=== PATIENT | female | born 1960 | race Two or more races ===

== ENCOUNTER 2020-06-05 10:51 | Inpatient (IN) | payer MEDICAID, OTHER ==
[~2020-06-05] VITALS: Ht 180.3 cm; Wt 85.4 kg
[2020-06-05] MEDS ORDERED: ACETAMINOPHEN 325MG TABLET PO STA (11:42)
[2020-06-05] MEDS ORDERED: CEFTRIAXONE 1 G PREMIX 50 ML IV ONE (11:45)
[2020-06-05] MEDS ORDERED: SODIUM CHLORIDE 0.9% 1000ML BAG (SEPSIS BOLUS) IV ONE (11:45)
[2020-06-05 12:12] LABS: BASOPHILS % 0.6 % (0.0-2.0); EOSINOPHILS % 0.2 % (0.0-5.0); HEMATOCRIT. 31.2 % (36.0-48.0); HEMOGLOBIN. 10.3 g/dL (12.0-16.0); LYMPHOCYTES % 12.3 % (20.0-50.0); MEAN CORPUSCULAR HEMOGLOBIN 37.8 pg (28.0-32.0); MEAN CORPUSCULAR VOLUME 114.3 fL (81.0-99.0); MEAN PLATELET VOLUME 8.8 fl (7.4-10.4); NEUTROPHILS % 76.9 % (40.0-76.0); RED BLOOD CELL COUNT 2.73 mill/uL (4.2-5.4); RED CELL DISTRIBUTION WIDTH 18.6 % (11.6-14.6)
[2020-06-05 12:17] LABS: CHLORIDE 102 mEq/L (98-107)
[2020-06-05 12:21] LABS: ETHANOL BLOOD < 10 mg/dL; INR 1.9; PROTHROMBIN TIME 19.8 sec (9.6-11.0)
[2020-06-05 12:31] LABS: PLATELET 42 x1000/uL (130-400)
[2020-06-05 12:56] LABS: PLATELET ESTIMATE MARKEDLY DECREASED
[2020-06-05] MEDS ORDERED: PHYTONADIONE 10MG/ML AMP IM ONE (14:45)
[2020-06-05 15:07] LABS: CLARITY URINE CLOUDY (CLEAR); COLOR URINE ORANGE (YELLOW); KETONES URINE NEGATIVE (NEGATIVE); LEUKOCYTE ESTERASE URINE 2+ (NEGATIVE); NITRITE URINE POSITIVE (NEGATIVE); OCCULT BLOOD URINE 3+ (NEGATIVE); PROTEIN URINE 1+ (NEGATIVE); SPECIFIC GRAVITY URINE 1.024 (1.005-1.030)
[2020-06-05 15:31] LABS: *AMPHETAMINES SCREEN URINE NEGATIVE (NEGATIVE); *BARBITURATES SCREEN URINE NEGATIVE (NEGATIVE); *BENZODIAZEPINES SCREEN URINE NEGATIVE (NEGATIVE); *COCAINE SCREEN URINE NEGATIVE (NEGATIVE); METHADONE URINE SCREEN NEGATIVE (NEGATIVE)
[2020-06-05 15:33] LABS: CANNABINOID URINE SCREEN NEGATIVE (NEGATIVE); OPIATES URINE SCREEN NEGATIVE (NEGATIVE); PHENCYCLIDINE URINE SCREEN NEGATIVE (NEGATIVE)
[2020-06-05] MEDS ORDERED: PHYTONADIONE 10MG/ML AMP IM NR (15:45)
[2020-06-05] MEDS ORDERED: LEVOFLOXACIN 500MG PREMIX 100 ML IV ONE (16:00)
[2020-06-05] MEDS ORDERED: SODIUM CHLORIDE 0.9% 1,000 ML IV SCH (16:45)
[2020-06-05] MEDS ORDERED: PHYTONADIONE 10MG/ML AMP SUBCUT ONE (17:45)
[2020-06-05 17:51] VITALS: BP 170/99
[2020-06-05] MEDS ORDERED: PANT40TA4 MT (18:18)
[2020-06-05] MEDS ORDERED: THIA100T72 MT (18:18)
[2020-06-05] MEDS ORDERED: NIFE20CA PO (18:18)
[2020-06-05] MEDS ORDERED: LISI40TA4 MT (18:18)
[2020-06-05] MEDS ORDERED: PNEUMOCOCCAL 23-VAL P-SAC VAC 0.5 ML IM ONE (18:30)
[2020-06-06 00:12] VITALS: BP 152/88
[2020-06-06] MEDS: ACETAMINOPHEN 325MG TABLET PO PRN ×2 (00:22→17:52)
[2020-06-06 04:00] VITALS: BP 150/96
[2020-06-06] MEDS ORDERED: PHYTONADIONE 10MG/ML AMP SUBCUT NR (06:00)
[2020-06-06 07:50] LABS: BASOPHILS % 0.2 % (0.0-2.0); EOSINOPHILS % 0.6 % (0.0-5.0); HEMATOCRIT. 27.1 % (36.0-48.0); HEMOGLOBIN. 9.1 g/dL (12.0-16.0); LYMPHOCYTES % 22.9 % (20.0-50.0); MEAN CORPUSCULAR HEMOGLOBIN 38.9 pg (28.0-32.0); MEAN CORPUSCULAR VOLUME 115.4 fL (81.0-99.0); MEAN PLATELET VOLUME 9.2 fl (7.4-10.4); MONOCYTES % 11.4 % (2.0-8.0); NEUTROPHILS % 64.9 % (40.0-76.0); RED BLOOD CELL COUNT 2.35 mill/uL (4.2-5.4); RED CELL DISTRIBUTION WIDTH 18.7 % (11.6-14.6)
[2020-06-06 07:58] LABS: CHLORIDE 104 mEq/L (98-107)
[2020-06-06 07:59] LABS: INR 2.4; PARTIAL THROMBOPLASTIN TIME 54.7 sec (23.4-31.0); PROTHROMBIN TIME 24.1 sec (9.6-11.0)
[2020-06-06 08:00] VITALS: BP 148/84
[2020-06-06 08:00] LABS: PLATELET 31 x1000/uL (130-400)
[2020-06-06 08:04] LABS: TOTAL IRON BINDING CAPACITY 122 ug/dL (250-450)
[2020-06-06] MEDS ORDERED: ONDANSETRON HCL 4MG/2ML INJ IV PRN (09:45)
[2020-06-06] MEDS: CEFTRIAXONE 1,000 MG in DEXTROSE 5% WATER 50 ML IV SCH (11:19)
[2020-06-06 12:00] VITALS: BP 128/74
[2020-06-06] MEDS: METRONIDAZOLE 500 MG PREMIX 100 ML IV SCH ×2 (12:05→17:20)
[2020-06-06 16:00] VITALS: BP 124/75
[2020-06-06] MEDS: FUROSEMIDE 20MG TABLET PO SCH (16:41)
[2020-06-06] MEDS: SPIRONOLACTONE 25MG TABLET PO SCH (16:41)
[2020-06-06 20:00] VITALS: BP 107/64
[2020-06-06] MEDS: AMLODIPINE 5MG TABLET PO SCH (20:12)
[2020-06-06 22:48] LABS: BG BASE EXCESS -2.7 mmol/L (-2.0-2.0); BG CARBOXYHEMOGLOBIN 2.1 % (0.5-1.5); BG DEOXYHEMOGLOBIN 11.1 % (0.0-5.0); BG FRACTION INSPIRED OXYGEN 21; BG METHEMOGLOBIN 0.1 % (0.0-1.5); BG OXYGEN SATURATION 88.7 % (92.0-98.5); BG OXYHEMOGLOBIN 86.7 % (94.0-97.0); BG PCO2 27.7 mmHg (35.0-45.0); BG PH 7.477 (7.350-7.450); BG PO2 57.3 mmHg (75.0-100.0); BG SAMPLE SITE RIGHT BRACHIAL; BG TOTAL HEMOGLOBIN 9.8 g/dL (12.0-18.0); BG VENT MODE ROOM AIR
[2020-06-07] VITALS (7 sets, daily range): BP systolic 95–183; BP diastolic 47–86
[2020-06-07] MEDS: METRONIDAZOLE 500 MG PREMIX 100 ML IV SCH ×3 (02:07→18:02)
[2020-06-07] MEDS: FUROSEMIDE 20MG TABLET PO SCH (08:37)
[2020-06-07] MEDS: CEFTRIAXONE 1,000 MG in DEXTROSE 5% WATER 50 ML IV SCH (08:37)
[2020-06-07] MEDS: SPIRONOLACTONE 25MG TABLET PO SCH (08:37)
[2020-06-07] MEDS: AMLODIPINE 5MG TABLET PO SCH ×2 (08:38→20:46)
[2020-06-07] MEDS: ACETAMINOPHEN 325MG TABLET PO PRN (18:01)
[2020-06-07] MEDS: FOLIC ACID 1MG TABLET PO SCH (18:02)
[2020-06-08] VITALS (10 sets, daily range): BP systolic 105–152; BP diastolic 50–98
[2020-06-08] MEDS: METRONIDAZOLE 500 MG PREMIX 100 ML IV SCH ×3 (01:21→18:29)
[2020-06-08 07:03] LABS: INR 2.4; PARTIAL THROMBOPLASTIN TIME 58.1 sec (23.4-31.0); PROTHROMBIN TIME 23.7 sec (9.6-11.0)
[2020-06-08] MEDS: AMLODIPINE 5MG TABLET PO SCH ×2 (09:00→20:47)
[2020-06-08] MEDS: CEFTRIAXONE 1,000 MG in DEXTROSE 5% WATER 50 ML IV SCH (09:15)
[2020-06-08] MEDS: SPIRONOLACTONE 25MG TABLET PO SCH (09:15)
[2020-06-08] MEDS: FUROSEMIDE 20MG TABLET PO SCH (09:16)
[2020-06-08] MEDS: FOLIC ACID 1MG TABLET PO SCH (09:16)
[2020-06-08 11:16] LABS: HEMATOCRIT. 23.3 % (36.0-48.0); MEAN CORPUSCULAR HEMOGLOBIN 40.5 pg (28.0-32.0); MEAN CORPUSCULAR VOLUME 117.5 fL (81.0-99.0); MEAN PLATELET VOLUME 10.7 fl (7.4-10.4); RED BLOOD CELL COUNT 1.99 mill/uL (4.2-5.4); RED CELL DISTRIBUTION WIDTH 18.8 % (11.6-14.6)
[2020-06-08 11:20] LABS: INR 2.4; PROTHROMBIN TIME 23.9 sec (9.6-11.0)
[2020-06-08 11:21] LABS: PLATELET 49 x1000/uL (130-400)
[2020-06-08 11:24] LABS: CHLORIDE 101 mEq/L (98-107)
[2020-06-08 12:42] LABS: NUCLEATED RED BLOOD CELLS 1 /100 WBC
[2020-06-08 12:46] LABS: PLATELET ESTIMATE MARKEDLY DECREASED
[2020-06-08] MEDS: PHYTONADIONE 10MG/ML AMP SUBCUT SCH (15:04)
[2020-06-09] VITALS: BP 105/49
[2020-06-09] MEDS: METRONIDAZOLE 500 MG PREMIX 100 ML IV SCH ×3 (02:14→18:42)
[2020-06-09 04:00] VITALS: BP 124/84
[2020-06-09] MEDS: PHYTONADIONE 10MG/ML AMP SUBCUT SCH (06:00)
[2020-06-09 07:19] LABS: INR 2.2; PROTHROMBIN TIME 22.5 sec (9.6-11.0)
[2020-06-09 07:24] LABS: EOSINOPHILS % 0.1 % (0.0-5.0); HEMATOCRIT. 25.2 % (36.0-48.0); HEMOGLOBIN. 8.6 g/dL (12.0-16.0); LYMPHOCYTES % 14.8 % (20.0-50.0); MEAN CORPUSCULAR HEMOGLOBIN 40.9 pg (28.0-32.0); MEAN CORPUSCULAR VOLUME 119.4 fL (81.0-99.0); MEAN PLATELET VOLUME 10.4 fl (7.4-10.4); NEUTROPHILS % 70.1 % (40.0-76.0); PLATELET 55 x1000/uL (130-400); RED BLOOD CELL COUNT 2.11 mill/uL (4.2-5.4)
[2020-06-09 07:35] LABS: CHLORIDE 99 mEq/L (98-107)
[2020-06-09 08:00] VITALS: BP 119/51
[2020-06-09] MEDS: FOLIC ACID 1MG TABLET PO SCH (08:55)
[2020-06-09] MEDS: AMLODIPINE 5MG TABLET PO SCH ×2 (08:55→20:12)
[2020-06-09] MEDS: SPIRONOLACTONE 25MG TABLET PO SCH (08:55)
[2020-06-09] MEDS: CEFTRIAXONE 1,000 MG in DEXTROSE 5% WATER 50 ML IV SCH (08:55)
[2020-06-09] MEDS: FUROSEMIDE 20MG TABLET PO SCH (08:55)
[2020-06-09 12:00] VITALS: BP 123/64
[2020-06-09] MEDS ORDERED: POTASSIUM CHLORIDE 20MEQ TABLET SR PO NR (12:00)
[2020-06-09] MEDS ORDERED: SPIR100T5 MT (13:10)
[2020-06-09] MEDS ORDERED: FURO-151 MT (13:10)
[2020-06-09] MEDS ORDERED: AMLO5TAB88 PO (13:10)
[2020-06-09 16:00] VITALS: BP 119/72
[2020-06-09 16:49] LABS: PLATELET ESTIMATE MARKEDLY DECREASED
[2020-06-09 20:00] VITALS: BP 101/62
[2020-06-09] MEDS: ACETAMINOPHEN 325MG TABLET PO PRN (20:24)
[2020-06-09 21:21] LABS: HEMOGLOBIN 7.1 g/dL (12.0-16.0); MEAN CORPUSCULAR HEMOGLOBIN 39.7 pg (28.0-32.0); MEAN CORPUSCULAR VOLUME 116.9 fL (81.0-99.0); RED BLOOD CELL COUNT 1.79 mill/uL (4.2-5.4); RED CELL DISTRIBUTION WIDTH 19.9 % (11.6-14.6)
[2020-06-09 21:33] LABS: HEMATOCRIT 20.9 % (36.0-48.0); PLATELET 42 x1000/uL (130-400)
[2020-06-10] VITALS (20 sets, daily range): BP systolic 117–186; BP diastolic 61–98
[2020-06-10] MEDS: METRONIDAZOLE 500 MG PREMIX 100 ML IV SCH ×3 (01:19→17:49)
[2020-06-10] MEDS ORDERED: DIPHENHYDRAMINE 25MG CAPSULE PO NR (01:30)
[2020-06-10] MEDS ORDERED: POTASSIUM CHLORIDE 20MEQ TABLET SR PO NR (01:30)
[2020-06-10] MEDS ORDERED: ACETAMINOPHEN 325MG TABLET PO NR (01:30)
[2020-06-10 07:05] LABS: CHLORIDE 100 mEq/L (98-107)
[2020-06-10 07:56] LABS: HEMATOCRIT. 26.1 % (36.0-48.0); HEMOGLOBIN. 8.9 g/dL (12.0-16.0); MEAN CORPUSCULAR VOLUME 114.9 fL (81.0-99.0); MEAN PLATELET VOLUME 10.6 fl (7.4-10.4); RED BLOOD CELL COUNT 2.27 mill/uL (4.2-5.4); RED CELL DISTRIBUTION WIDTH 21.8 % (11.6-14.6)
[2020-06-10 08:19] LABS: PLATELET 43 x1000/uL (130-400)
[2020-06-10] MEDS: FUROSEMIDE 20MG TABLET PO SCH (09:35)
[2020-06-10] MEDS: AMLODIPINE 5MG TABLET PO SCH ×2 (09:35→20:55)
[2020-06-10] MEDS: FOLIC ACID 1MG TABLET PO SCH (09:35)
[2020-06-10] MEDS: SPIRONOLACTONE 25MG TABLET PO SCH (09:35)
[2020-06-10] MEDS: ACETAMINOPHEN 325MG TABLET PO PRN (12:25)
[2020-06-10 13:10] LABS: HEMATOCRIT. 27.1 % (36.0-48.0); HEMOGLOBIN. 9.2 g/dL (12.0-16.0); MEAN CORPUSCULAR HEMOGLOBIN 39.3 pg (28.0-32.0); MEAN CORPUSCULAR VOLUME 115.8 fL (81.0-99.0); PLATELET 54 x1000/uL (130-400); RED BLOOD CELL COUNT 2.34 mill/uL (4.2-5.4); RED CELL DISTRIBUTION WIDTH 22.6 % (11.6-14.6)
[2020-06-10 13:20] LABS: PROTHROMBIN TIME 20.8 sec (9.6-11.0)
[2020-06-10 13:39] LABS: PLATELET ESTIMATE DECREASED
[2020-06-10] MEDS ORDERED: LIDOCAINE HCL 1% 20ML VIAL (Pyxis) INJ ONE (14:02)
[2020-06-10] MEDS ORDERED: SODIUM BICARBONATE 4% (2.4MEQ) 5ML VIAL IV ONE (14:02)
[2020-06-10 14:18] LABS: NUCLEATED RED BLOOD CELLS 2 /100 WBC; PLATELET ESTIMATE MARKEDLY DECREASED
[2020-06-10 16:23] LABS: INR 2.2; PROTHROMBIN TIME 22.4 sec (9.6-11.0)
[2020-06-10] MEDS: POTASSIUM CHLORIDE 20MEQ TABLET SR PO SCH (20:55)
[2020-06-11] VITALS: BP 111/43
[2020-06-11] MEDS: METRONIDAZOLE 500 MG PREMIX 100 ML IV SCH ×3 (00:51→17:16)
[2020-06-11 04:00] VITALS: BP 107/53
[2020-06-11 07:42] LABS: HEMATOCRIT. 25.1 % (36.0-48.0); HEMOGLOBIN. 8.6 g/dL (12.0-16.0); MEAN CORPUSCULAR HEMOGLOBIN 39.6 pg (28.0-32.0); MEAN CORPUSCULAR VOLUME 115.9 fL (81.0-99.0); RED BLOOD CELL COUNT 2.17 mill/uL (4.2-5.4); RED CELL DISTRIBUTION WIDTH 21.9 % (11.6-14.6)
[2020-06-11 07:53] LABS: CHLORIDE 101 mEq/L (98-107)
[2020-06-11 08:00] VITALS: BP 130/68
[2020-06-11] MEDS: POTASSIUM CHLORIDE 20MEQ TABLET SR PO SCH (09:50)
[2020-06-11] MEDS: AMLODIPINE 5MG TABLET PO SCH ×2 (09:50→20:51)
[2020-06-11] MEDS: FOLIC ACID 1MG TABLET PO SCH (09:50)
[2020-06-11] MEDS: FUROSEMIDE 20MG TABLET PO SCH ×2 (09:50→15:40)
[2020-06-11] MEDS: SPIRONOLACTONE 25MG TABLET PO SCH (09:50)
[2020-06-11 11:16] LABS: NUCLEATED RED BLOOD CELLS 1 /100 WBC
[2020-06-11 11:17] LABS: PLATELET ESTIMATE DECREASED
[2020-06-11 11:19] LABS: MEAN PLATELET VOLUME 10.8 fl (7.4-10.4); PLATELET 52 x1000/uL (130-400)
[2020-06-11] MEDS: CEFTRIAXONE 2 G in DEXTROSE 5% WATER 50 ML IV SCH (13:32)
[2020-06-11] MEDS: LACTOBACILLUS GG CAPSULE PO SCH (13:32)
[2020-06-11 16:00] VITALS: BP 136/73
[2020-06-11 20:00] VITALS: BP 124/69
[2020-06-11] MEDS: ACETAMINOPHEN 325MG TABLET PO PRN (21:27)
[2020-06-12] VITALS: BP 123/72
[2020-06-12 04:00] VITALS: BP 127/73
[2020-06-12] MEDS: FUROSEMIDE 20MG TABLET PO SCH ×2 (06:27→17:29)
[2020-06-12 07:29] LABS: CHLORIDE 104 mEq/L (98-107)
[2020-06-12 08:00] VITALS: BP 117/70
[2020-06-12] MEDS: AMLODIPINE 5MG TABLET PO SCH ×2 (09:16→21:57)
[2020-06-12] MEDS: SPIRONOLACTONE 50MG TABLET PO SCH (09:16)
[2020-06-12] MEDS: POTASSIUM CHLORIDE 20MEQ TABLET SR PO SCH (09:18)
[2020-06-12] MEDS: LACTOBACILLUS GG CAPSULE PO SCH (09:18)
[2020-06-12] MEDS: FOLIC ACID 1MG TABLET PO SCH (09:18)
[2020-06-12 12:00] VITALS: BP 120/65
[2020-06-12] MEDS: CEFTRIAXONE 2 G in DEXTROSE 5% WATER 50 ML IV SCH (13:07)
[2020-06-12 16:00] VITALS: BP 110/61
[2020-06-12] MEDS: ACETAMINOPHEN 325MG TABLET PO PRN (18:04)
[2020-06-12] MEDS: LOPERAMIDE HCL 2MG CAPSULE PO PRN (19:16)
[2020-06-12 20:00] VITALS: BP 126/70
[2020-06-12] MEDS: TRAZODONE HCL 50MG TABLET PO SCH (21:57)
[2020-06-13] VITALS: BP 130/76
[2020-06-13 04:00] VITALS: BP 119/74
[2020-06-13] MEDS: FUROSEMIDE 20MG TABLET PO SCH ×2 (06:21→17:50)
[2020-06-13] MEDS: FOLIC ACID 1MG TABLET PO SCH (09:27)
[2020-06-13] MEDS: LACTOBACILLUS GG CAPSULE PO SCH (09:28)
[2020-06-13] MEDS: SPIRONOLACTONE 50MG TABLET PO SCH (09:28)
[2020-06-13] MEDS: AMLODIPINE 5MG TABLET PO SCH ×2 (09:29→21:14)
[2020-06-13] MEDS: POTASSIUM CHLORIDE 20MEQ TABLET SR PO SCH (09:29)
[2020-06-13] MEDS: ACETAMINOPHEN 325MG TABLET PO PRN ×2 (12:46→21:25)
[2020-06-13] MEDS: CEFTRIAXONE 2 G in DEXTROSE 5% WATER 50 ML IV SCH (14:38)
[2020-06-13] MEDS: TRAZODONE HCL 50MG TABLET PO SCH (21:13)
[2020-06-14] VITALS: BP 130/69
[2020-06-14 04:00] VITALS: BP 120/69
[2020-06-14] MEDS: FUROSEMIDE 20MG TABLET PO SCH ×2 (06:24→17:53)
[2020-06-14 07:42] LABS: BASOPHILS % 0.8 % (0.0-2.0); EOSINOPHILS % 0.8 % (0.0-5.0); HEMATOCRIT. 26.8 % (36.0-48.0); HEMOGLOBIN. 8.9 g/dL (12.0-16.0); MEAN CORPUSCULAR HEMOGLOBIN 38.9 pg (28.0-32.0); MEAN CORPUSCULAR VOLUME 116.4 fL (81.0-99.0); MEAN PLATELET VOLUME 9.9 fl (7.4-10.4); MONOCYTES % 14.1 % (2.0-8.0); NEUTROPHILS % 76.3 % (40.0-76.0); PLATELET 59 x1000/uL (130-400); RED CELL DISTRIBUTION WIDTH 20.9 % (11.6-14.6)
[2020-06-14 07:43] LABS: CHLORIDE 102 mEq/L (98-107)
[2020-06-14 08:00] VITALS: BP 123/69
[2020-06-14] MEDS: LACTOBACILLUS GG CAPSULE PO SCH (09:12)
[2020-06-14] MEDS: SPIRONOLACTONE 50MG TABLET PO SCH (09:12)
[2020-06-14] MEDS: AMLODIPINE 5MG TABLET PO SCH ×2 (09:12→21:02)
[2020-06-14] MEDS: FOLIC ACID 1MG TABLET PO SCH (09:13)
[2020-06-14] MEDS: POTASSIUM CHLORIDE 20MEQ TABLET SR PO SCH (09:13)
[2020-06-14 12:00] VITALS: BP 121/67
[2020-06-14] MEDS: CEFTRIAXONE 2 G in DEXTROSE 5% WATER 50 ML IV SCH (12:34)
[2020-06-14 15:25] LABS: BG CARBOXYHEMOGLOBIN 1.4 % (0.5-1.5); BG DEOXYHEMOGLOBIN 13.4 % (0.0-5.0); BG FRACTION INSPIRED OXYGEN 21; BG HCO3 ACT 24.2 mmol/L (22.0-26.0); BG OXYGEN SATURATION 86.4 % (92.0-98.5); BG OXYHEMOGLOBIN 85.2 % (94.0-97.0); BG PCO2 32.9 mmHg (35.0-45.0); BG PH 7.485 (7.350-7.450); BG PO2 53.9 mmHg (75.0-100.0); BG SAMPLE SITE RIGHT BRACHIAL; BG VENT MODE ROOM AIR
[2020-06-14 16:00] VITALS: BP 118/57
[2020-06-14 20:00] VITALS: BP 135/69
[2020-06-14] MEDS: ACETAMINOPHEN 325MG TABLET PO PRN (21:01)
[2020-06-14] MEDS: TRAZODONE HCL 50MG TABLET PO SCH (21:01)
[2020-06-15] VITALS: BP 126/64
[2020-06-15 04:00] VITALS: BP 118/66
[2020-06-15] MEDS: FUROSEMIDE 20MG TABLET PO SCH ×2 (06:00→17:15)
[2020-06-15 07:19] LABS: BASOPHILS % 0.8 % (0.0-2.0); EOSINOPHILS % 0.6 % (0.0-5.0); HEMATOCRIT. 26.8 % (36.0-48.0); HEMOGLOBIN. 9.2 g/dL (12.0-16.0); LYMPHOCYTES % 14.8 % (20.0-50.0); MEAN CORPUSCULAR HEMOGLOBIN 39.5 pg (28.0-32.0); MEAN CORPUSCULAR VOLUME 115.4 fL (81.0-99.0); MONOCYTES % 14.6 % (2.0-8.0); NEUTROPHILS % 69.2 % (40.0-76.0); RED BLOOD CELL COUNT 2.33 mill/uL (4.2-5.4)
[2020-06-15 07:44] LABS: CHLORIDE 101 mEq/L (98-107)
[2020-06-15 08:00] VITALS: BP 122/66
[2020-06-15] MEDS: POTASSIUM CHLORIDE 20MEQ TABLET SR PO SCH (08:58)
[2020-06-15] MEDS: AMLODIPINE 5MG TABLET PO SCH ×2 (08:58→21:00)
[2020-06-15] MEDS: LACTOBACILLUS GG CAPSULE PO SCH (08:58)
[2020-06-15] MEDS: SPIRONOLACTONE 50MG TABLET PO SCH (08:58)
[2020-06-15] MEDS: FOLIC ACID 1MG TABLET PO SCH (08:58)
[2020-06-15 09:57] LABS: MEAN PLATELET VOLUME 10.5 fl (7.4-10.4); PLATELET 65 x1000/uL (130-400)
[2020-06-15 12:00] VITALS: BP 121/68
[2020-06-15] MEDS: CEFTRIAXONE 2 G in DEXTROSE 5% WATER 50 ML IV SCH (13:17)
[2020-06-15] MEDS: LACTULOSE 20G/30ML UDC PO SCH ×2 (14:04→20:55)
[2020-06-15] MEDS: ACETAMINOPHEN 325MG TABLET PO PRN (15:41)
[2020-06-15 16:00] VITALS: BP 120/67
[2020-06-15 20:00] VITALS: BP 118/63
[2020-06-15] MEDS: TRAZODONE HCL 50MG TABLET PO SCH (20:57)
[2020-06-16] VITALS: BP 111/60
[2020-06-16 04:00] VITALS: BP 107/62
[2020-06-16] MEDS: FUROSEMIDE 20MG TABLET PO SCH ×2 (06:34→18:05)
[2020-06-16] MEDS: LACTULOSE 20G/30ML UDC PO SCH ×2 (06:34→13:27)
[2020-06-16 08:00] VITALS: BP 117/55
[2020-06-16] MEDS: SPIRONOLACTONE 50MG TABLET PO SCH (09:09)
[2020-06-16] MEDS: POTASSIUM CHLORIDE 20MEQ TABLET SR PO SCH (09:11)
[2020-06-16] MEDS: AMLODIPINE 5MG TABLET PO SCH ×2 (09:12→20:19)
[2020-06-16] MEDS: FOLIC ACID 1MG TABLET PO SCH (09:12)
[2020-06-16] MEDS: LACTOBACILLUS GG CAPSULE PO SCH (09:28)
[2020-06-16 12:00] VITALS: BP 113/62
[2020-06-16] MEDS: LOPERAMIDE HCL 2MG CAPSULE PO PRN (13:26)
[2020-06-16 16:00] VITALS: BP 120/63
[2020-06-16 20:00] VITALS: BP 132/67
[2020-06-16] MEDS: TRAZODONE HCL 50MG TABLET PO SCH (20:19)
[2020-06-16] MEDS: GUAIFENESIN 200MG/10ML SUGAR FREE UDC PO PRN (20:22)
[2020-06-17] VITALS: BP 114/64
[2020-06-17 04:00] VITALS: BP 111/63
[2020-06-17] MEDS: FUROSEMIDE 20MG TABLET PO SCH ×2 (06:23→17:45)
[2020-06-17 07:02] LABS: CHLORIDE 99 mEq/L (98-107)
[2020-06-17 07:14] LABS: INR 1.8; PROTHROMBIN TIME 18.6 sec (9.6-11.0)
[2020-06-17 07:25] LABS: EOSINOPHILS % 0.9 % (0.0-5.0); HEMATOCRIT. 25.3 % (36.0-48.0); HEMOGLOBIN. 8.7 g/dL (12.0-16.0); LYMPHOCYTES % 15.7 % (20.0-50.0); MEAN CORPUSCULAR HEMOGLOBIN 39.6 pg (28.0-32.0); MEAN CORPUSCULAR VOLUME 115.3 fL (81.0-99.0); MEAN PLATELET VOLUME 11.1 fl (7.4-10.4); MONOCYTES % 13.9 % (2.0-8.0); NEUTROPHILS % 68.5 % (40.0-76.0); PLATELET 59 x1000/uL (130-400); RED BLOOD CELL COUNT 2.19 mill/uL (4.2-5.4); RED CELL DISTRIBUTION WIDTH 20.1 % (11.6-14.6)
[2020-06-17 08:00] VITALS: BP 112/63
[2020-06-17] MEDS: POTASSIUM CHLORIDE 20MEQ TABLET SR PO SCH (09:12)
[2020-06-17] MEDS: LACTULOSE 20G/30ML UDC PO SCH (09:12)
[2020-06-17] MEDS: GUAIFENESIN 200MG/10ML SUGAR FREE UDC PO PRN ×2 (09:12→17:45)
[2020-06-17] MEDS: SPIRONOLACTONE 50MG TABLET PO SCH (09:13)
[2020-06-17] MEDS: AMLODIPINE 5MG TABLET PO SCH ×2 (09:13→21:06)
[2020-06-17] MEDS: FOLIC ACID 1MG TABLET PO SCH (09:13)
[2020-06-17] MEDS: LACTOBACILLUS GG CAPSULE PO SCH (09:13)
[2020-06-17 12:00] VITALS: BP 115/61
[2020-06-17 16:00] VITALS: BP 124/68
[2020-06-17 20:00] VITALS: BP 115/74
[2020-06-17] MEDS: TRAZODONE HCL 50MG TABLET PO SCH (21:06)
[2020-06-18] VITALS: BP 120/71
[2020-06-18 04:00] VITALS: BP 113/60
[2020-06-18] MEDS: GUAIFENESIN 200MG/10ML SUGAR FREE UDC PO PRN ×2 (04:44→13:31)
[2020-06-18] MEDS: FUROSEMIDE 20MG TABLET PO SCH ×2 (06:28→17:39)
[2020-06-18 08:00] VITALS: BP 114/66
[2020-06-18] MEDS: LACTOBACILLUS GG CAPSULE PO SCH (09:46)
[2020-06-18] MEDS: SPIRONOLACTONE 50MG TABLET PO SCH (09:47)
[2020-06-18] MEDS: FOLIC ACID 1MG TABLET PO SCH (09:47)
[2020-06-18] MEDS: POTASSIUM CHLORIDE 20MEQ TABLET SR PO SCH (09:48)
[2020-06-18] MEDS: LACTULOSE 20G/30ML UDC PO SCH (09:48)
[2020-06-18] MEDS: AMLODIPINE 5MG TABLET PO SCH (09:54)
[2020-06-18 12:00] VITALS: BP 153/60
[2020-06-18 16:00] VITALS: BP 121/59
[2020-06-18 16:29] VITALS: BP 121/59
== END 2020-06-18 17:45 | disposition home or self-care (01) | DRG 720 ==
LOC: ER 10:51 → 6EST 14:31 → EDBEDREQ 14:40 → ENRESERV 16:21 → 7WST 22:18 → 5WST 06-07 17:41 → 6EST 06-12 10:03
PROVIDERS: ADMIT Internal Medicine; ATTEND Internal Medicine
PROC: 30233K1 Transfusion of Nonautologous Frozen Plasma into Peripheral Vein, Percutaneous Approach (ICD-10-PCS; 2020-06-08)
PROC: 0W9G3ZX Drainage of Peritoneal Cavity, Percutaneous Approach, Diagnostic (ICD-10-PCS; principal; 2020-06-10)
PROC: 30233R1 Transfusion of Nonautologous Platelets into Peripheral Vein, Percutaneous Approach (ICD-10-PCS; 2020-06-10)
PROC: 30233N1 Transfusion of Nonautologous Red Blood Cells into Peripheral Vein, Percutaneous Approach (ICD-10-PCS; 2020-06-10)
DX: A41.9 Sepsis, unspecified organism (principal); J96.01 Acute respiratory failure with hypoxia; E43 Unspecified severe protein-calorie malnutrition; D61.818 Other pancytopenia; K65.2 Spontaneous bacterial peritonitis; E87.70 Fluid overload, unspecified; K76.6 Portal hypertension; D68.9 Coagulation defect, unspecified; E87.6 Hypokalemia; D53.9 Nutritional anemia, unspecified; E87.2 Acidosis; I10 Essential (primary) hypertension; J98.11 Atelectasis; E11.9 Type 2 diabetes mellitus without complications; K70.31 Alcoholic cirrhosis of liver with ascites; K80.20 Calculus of gallbladder without cholecystitis without obstruction; N39.0 Urinary tract infection, site not specified; G93.41 Metabolic encephalopathy; K72.90 Hepatic failure, unspecified without coma; F10.10 Alcohol abuse, uncomplicated; K31.89 Other diseases of stomach and duodenum; Z90.710 Acquired absence of both cervix and uterus; Z68.26 Body mass index [BMI] 26.0-26.9, adult; Z79.899 Other long term (current) drug therapy; Z86.19 Personal history of other infectious and parasitic diseases
CPT/HCPCS: 36415; 36600; 49083; 71045; 74176; 76700; 80048; 80053; 80076; 80305; 80320; 81003; 82040; 82105; 82140; 82248; 82270; 82375; 82607; 82728; 82746; 82805; 82962; 83540; 83550; 83605; 83615; 83880; 84132; 84145; 84155; 84484; 85025; 85027; 86850; 86900; 86920; 86927; 87015; 87045; 87427; 87449; 87635; 88108; 89055; 93005; 97116; 97162; 97166; 99291; J0696; J1956; J2405; J3430; J3490; J7030; J7060; P9016; P9017; P9034; Q0163; G0480